=== PATIENT | male | born 1975 | race Caucasian/White ===

== ENCOUNTER → 2023-06-15 13:48 | Outpatient (BNVA) | payer OTHER, SELFPAY | PROVIDERS: Visit Provider Physician Assistant Medical | DX: K43.9 Ventral hernia without obstruction or gangrene (principal) | CPT/HCPCS: 99203 ==

== ENCOUNTER → 2023-06-28 08:01 | Outpatient (BNVA) | payer OTHER, SELFPAY | PROVIDERS: Referring Provider Internal Medicine; Visit Provider Surgery | DX: K43.9 Ventral hernia without obstruction or gangrene (principal) | CPT/HCPCS: 99202 ==

== ENCOUNTER 2023-06-28 08:36 | Outpatient (AMB) | payer OTHER, SELFPAY ==
--- NOTE | 2023-06-28 09:17 | A.OFFVIS_ITS ---
Intake Vital Signs 06/28/23 09:18 Height 5 ft 9 in Weight 238 lb 4 oz BMI 35.2 BP 147/91 H Blood Pressure Location Lt brachial Position Sitting Pulse 85 Intake Visit Reasons: Ventral Hernia Intake Note: Patient is seen in office for evaluation and treatment of a ventral hernia. 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 He says that he has noticed this lump on his abdomen for about 4 months now. He says that this becomes prominent when he is standing up or doing exertion He thinks that this happened because of his work. 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 He has a diabetic. [facility] Medical History (Updated 06/28/23 @ 09:50 by Rey Farias MD) Supraumbilical hernia Hypertension Diabetes mellitus Morbid obesity Surgical History Hx of appendectomy Hx of right inguinal hernia repair (~2008) Social History Alcohol intake: current Alcohol intake frequency: holidays/special occasions only Patient Tobacco Use Status: Never used Tobacco Review of Systems Const Denies chills and Denies fever(s) Card Denies chest pain, Denies dyspnea and Denies dyspnea on exertion Resp Denies cough, Denies dyspnea and Denies dyspnea on exertion GI Denies hematochezia and Denies change in bowel habits Denies hematuria and Denies difficulty urinating Musc Denies back pain and Denies limited range of motion Neuro Denies focal weakness and Denies convulsions Psych Denies depression and Denies mood swings Physical Exam Vital Signs: Last Vital Signs Pulse 85 06/28/23 09:18 BP 147/91 H 06/28/23 09:18 BMI result Body Mass Index 35.2 Const Other: Appears obese General: comfortable and no acute distress Orientation/consciousness: patient oriented x3 Neck Neck: Yes no lymphadenopathy Resp Auscultation: clear to auscultation bilaterally Cardio Rhythm: regular rhythm GI Other: Palpable hernia on the supraumbilical area, about 2 cm in size, reducible Palpation (GI): Soft to palpation, nontender and no guarding Neuro General: patient oriented x3 Assessment & Plan Assessment & Plan (1) Supraumbilical hernia: Code(s): K43.9 - Ventral hernia without obstruction or gangrene Plan: He has a supraumbilical hernia, reducible, about 2 cm as described above. He wants to proceed with repair in view of symptoms. I explained to him the technique of repair of this supraumbilical hernia with mesh. I discussed the risks including but not limited to bleeding, infections, recurrence, bowel injury, postop pain, poor healing, as well as the benefits and alternatives. He understands that being a diabetic increases his perioperative risks He has given consent. Coding Level of Care Code New Pt Level 3 (51002) Diagnoses Supraumbilical hernia K43.9
[2023-06-28 09:18] VITALS: BP 147/91; PULSE 85; BMI 35.2
== END 2023-06-28 09:49 | disposition home or self-care (01) ==
PROVIDERS: Referring Provider Internal Medicine; Visit Provider Surgery
DX: K43.9 Ventral hernia without obstruction or gangrene (principal)
CPT/HCPCS: 99203

== ENCOUNTER 2023-07-14 07:34 | Day surgery (SDC) | payer OTHER, SELFPAY ==
[2023-07-14] VITALS (9 sets, daily range): BP systolic 115–145; BP diastolic 71–94; PULSE 71–89; RESP 16–18; TEMP 36.6–37.2; O2SAT 95–100; BMI 36.0
--- NOTE | 2023-07-14 08:30 | PC.NURSE ---
Patient arrived to preop chewing gum. Dr. Aragon and Dr. Ortiz made aware. Okay per them, may proceed with surgery with no delay.
--- NOTE | 2023-07-14 08:53 | HO.ANESPROP2 ---
[facility] Active Problems Active Problems: All Active Problems Supraumbilical hernia (Acute) Hypertension (Acute) Diabetes mellitus (Acute) Morbid obesity (Acute) Past Medical History Medical History (Updated 06/28/23 @ 09:50 by Rey Farias MD) Supraumbilical hernia Hypertension Diabetes mellitus Morbid obesity Family History Family history of problems with anesthesia: No Surgical History Surgical History Hx of appendectomy Hx of right inguinal hernia repair (~2008) History of Problems with Anesthesia: No Social History Social History Alcohol intake: current Alcohol intake frequency: holidays/special occasions only Patient Tobacco Use Status: Never used Tobacco Advance Directives: No Advance Directives Information Provided: Yes Meds Allergies Allergy/AdvReac Type Severity Reaction Status Date / Time No Known Allergies Allergy Verified 06/28/23 09:53 Home Medications ?Medication ?Instructions ?Recorded ?Confirmed ?Last Taken ?Type blood sugar diagnostic (FreeStyle #10 ea 06/28/23 06/28/23 Unknown History Lite Strips) lancets 28 gauge (FreeStyle #100 ea 06/28/23 06/28/23 Unknown History Lancets) lisinopril 5 mg tablet 5 mg PO DAILY 06/28/23 06/28/23 Unknown History metformin 500 mg tablet,extended 500 mg PO BID 06/28/23 06/28/23 Unknown History release 24 hr Exam Airway Mallampati Class: III (top front right tooth slightly loose, pt made aware of risk of lose) TM Dist: >3cm Neck ROM: Full Heart: rrr Lungs: cta Assessment and Plan Assessment Anesthesia Assessment: Anesthesia Plan Discussed and Chart Reviewed Final Anesthetic Review Family History of Problems with Anesthesia: No History of Problems with Anesthesia: No NPO: Yes ASA Class: III Final Preanesthetic Review: No Changes in Pt Med Stat, Meds/Allgs Chart Reviewed and Consent Obtained/Reviewed Patient Risk: Low Procedure Risk: Low Anesthetic Plan Anesthetic Plan: GA Disposition: Standard PACU
--- NOTE | 2023-07-14 08:58 | MHC.SHP ---
Pre-Procedural Eval Section A - 24 Hr Update-Section A only Date of Service: 07/14/23 The patient is an INPATIENT: No Changes since office visit: No Cold of Flu in the past 2 weeks, No New Medical Problems, No Changes in Medication and No Patient answered all questions The patient has been examined within 24 hours of the surgical procedure. The History & Physical has been completed within 30 days and I have reviewed it.: Yes Section B - Complete if H&P > 30 days Chief Complaint: Ventral hernia without obstruction or gangrene Allergies: Allergies Allergy/AdvReac Type Severity Reaction Status Date / Time No Known Allergies Allergy Verified 06/28/23 09:53 Plan I have reviewed the history and physical and performed a pertinent physical examination on my patient. No changes have occurred unless specified. Time Spent With Patient Time: Total time managing care of this patient today ____ minutes.
[2023-07-14 09:11] LABS: Glucose, Whole Blood 136 mg/dL (60-115)
--- NOTE | 2023-07-14 10:07 | P.OP_ITS ---
Operative Note Operative Note Date of Service: 07/14/23 Narrative: Preop diagnosis: Supraumbilical hernia Postop diagnosis: Supraumbilical hernia Procedure: Repair of supraumbilical hernia with Ventralex mesh Surgeon: Rey Farias MD The patient is a 48-year-old male with a partially reducible supraumbilical mass consistent with a hernia. He understood the technique of the planned procedure as well as the risks, benefits, and alternatives He was brought to the operating room. He was placed supine under general anesthesia via laryngeal mask airway. The abdomen was prepped and draped in the usual sterile fashion. A surgical time-out was done. The patient received cefazolin 2 g IV preoperatively. I infiltrated the planned line of incision with lidocaine 1%. I made an incision on the supraumbilical area at the midline longitudinally using blade 15. This carried down through the full-thickness of the skin subcutaneous fat until the hernia was visualized. It is noted that the patient is obese and has a very thick amount of subcutaneous fat The hernia was fat containing. I sharply dissected this off the rest of the thick subcutaneous fat down to the fascial defect. I the hernia contents off of the fascial defect until was able to reduce this completely. The underside of the fascial edges were gently dissected to make sure that there were good margins for the mesh. The hernia measured about 1 cm in size. I therefore used a small-sized Ventralex mesh. This was positioned flat under the hernia. I secured the mesh with both fascial edges using Prolene 2-0 sutures to the Prolene straps of the mesh. The Prolene straps were then trimmed flush on the fascial layer. I closed the fascial defect with a [id number] Maxon 1 stitch Irrigation was done This skin was closed with subcuticular running 4-0 Polysorb sutures. The in cision was infiltrated with Marcaine 0.5% for postop analgesia. Dressings were applied. The procedure was completed. The patient tolerated the procedure well. There were no immediate complications . Initial and final counts of sponges and instruments were correct. Estimated blood loss was less than 10 cc. The patient was extubated without difficulty and transferred to the recovery room with stable vital signs.
[2023-07-14] MEDS: fentaNYL citrate/PF 100 MCG/2 ML VIAL 50 MCG IVPUSH ×2 (10:25→10:30)
[2023-07-14] MEDS: oxyCODONE HCl Immed Release 5 MG TABLET PO (10:51)
== END 2023-07-14 12:10 | disposition home or self-care (01) ==
PROVIDERS: PCP Nurse Practitioner Family; Visit Provider Surgery
PROC: (CPT 49591; principal; 2023-07-14 10:10)
DX: K43.9 Ventral hernia without obstruction or gangrene (principal); I10 Essential (primary) hypertension; E11.9 Type 2 diabetes mellitus without complications; E66.01 Morbid (severe) obesity due to excess calories; Z68.35 Body mass index [BMI] 35.0-35.9, adult; Z79.84 Long term (current) use of oral hypoglycemic drugs; Z79.899 Other long term (current) drug therapy
CPT/HCPCS: 49591; 82947; C1781; J0665; J0690; J1885; J2704; J3010

== ENCOUNTER → 2023-07-14 07:34 | Outpatient (BNV) | payer OTHER, SELFPAY | PROVIDERS: PCP Nurse Practitioner Family; Visit Provider Surgery | DX: K43.9 Ventral hernia without obstruction or gangrene (principal) | CPT/HCPCS: 49591 ==

== ENCOUNTER 2023-07-27 08:48 | Outpatient (AMB) | payer OTHER, SELFPAY ==
--- NOTE | 2023-07-27 08:53 | A.OFFVIS_ITS ---
Intake Intake Visit Reasons: s/p supraumbilical hernia w/ poss mesh Intake Note: This patient presents for a post-op assessment status post repair of supraumbilical hernia with ventralex mesh. Pt c/o; reports discomfort when sitting/walking, reports discomfort umbilical region incision. 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 He tolerated the procedure well and says he feels well overall. He denies complaints at this time. [facility] Medical History Supraumbilical hernia Hypertension Diabetes mellitus Morbid obesity Surgical History History of hernia repair (~07/14/23) Hx of appendectomy Hx of right inguinal hernia repair (~2008) Social History Alcohol intake: current Alcohol intake frequency: holidays/special occasions only Comment: counts correct Patient Tobacco Use Status: Former Tobacco user Tobacco use type: Cigarette Review of Systems Const Denies chills and Denies fever(s) Card Denies chest pain, Denies dyspnea and Denies dyspnea on exertion Resp Denies cough, Denies dyspnea and Denies dyspnea on exertion GI Denies hematochezia and Denies change in bowel habits Denies hematuria and Denies difficulty urinating Musc Denies back pain and Denies limited range of motion Neuro Denies focal weakness and Denies convulsions Psych Denies depression and Denies mood swings Physical Exam Const Other: Morbidly obese General: comfortable and no acute distress GI Other: Incision clean and dry, repair intact Palpation (GI): Soft to palpation and not firm Assessment & Plan Assessment & Plan (1) Supraumbilical hernia: Code(s): K43.9 - Ventral hernia without obstruction or gangrene Plan: Status post repair with mesh. He is doing very well. His incision is well healed. The repair site is intact. I advised him to avoid lifting of anything more than 20 lb for at least 3 more weeks. He can follow up on a p.r.n. basis. Coding Level of Care Code Global (46387) Diagnoses Supraumbilical hernia K43.9
== END 2023-07-27 09:13 | disposition home or self-care (01) ==
PROVIDERS: PCP Nurse Practitioner Family; Visit Provider Surgery
DX: K43.9 Ventral hernia without obstruction or gangrene (principal)
CPT/HCPCS: 99212

== ENCOUNTER → 2023-07-27 08:48 | Outpatient (BNVA) | payer OTHER, SELFPAY | PROVIDERS: PCP Nurse Practitioner Family; Visit Provider Surgery | DX: Z09 Encounter for follow-up examination after completed treatment for conditions other than malignant neoplasm (principal); Z87.19 Personal history of other diseases of the digestive system | CPT/HCPCS: 99212 ==